=== PATIENT | female | born 1950 | race Caucasian/White ===

== ENCOUNTER → 2018-11-12 | Outpatient (CLI) | payer MEDICARE, OTHER ==
[~2018-11-12] MED LIST: ALBU.083IS IH; ALBU90OI INH; ATOR20 PO; AZIT250 PO; CHOL10002 PO; CYCL10 PO; DEXILANT30 MG PO; DIPH50 PO; ELIQUIS5 MG PO; GUAI600T33 PO; HYDCHL12.5 PO; LEVSOD75 PO; LIDO700A20 TOP; LORA1 PO; LOSA50 PO; LOSHYD PO; METO50ER PO; METPRE4DP PO; Morphine Sulfat30 M1 PO; Mucinex600 MG PO; OMEG1CAP30 PO; PRED10 PO; PRED20 PO; PRED5 PO; PROCODE120 PO; Pepcid40 MG PO; SPIR25 PO; Synthroid112 MCG PO; Ultram50 MG PO; VIT B COMPLEX PO; Vibramycin100 MG PO
== END | disposition home or self-care (01) ==
LOC: LAB EV 15:42 → LAB SHORT 15:42
DX: N10 Acute pyelonephritis (principal)
CPT/HCPCS: 87077; 87086; 87147; 87186

== ENCOUNTER 2018-11-15 12:16 | Emergency (ER) | payer MEDICARE, OTHER ==
[~2018-11-15] VITALS: Ht 175.3 cm; Wt 119.8 kg
[~2018-11-15 12:16] MED LIST changes: -ATOR20 PO; -CYCL10 PO; -LIDO700A20 TOP; -PRED5 PO; -Ultram50 MG PO
[2018-11-15 12:50] LABS: Source, Urine Clean Catch
[2018-11-15 12:53] LABS: Bilirubin, Urine Neg (Neg); Blood, Urine Neg (Neg); Glucose Qualitative, Urine Neg (Neg); Ketones, Urine Neg (Neg); Leukocyte Esterase, Urine 1+ (Neg); Nitrite, Urine Neg (Neg); Protein, Urine 1+ (Neg); Urobilinogen, Urine 1+ (Normal)
[2018-11-15 13:07] LABS: Appearance, Urine Clear (Clear); Color, Urine Yellow (P-Yellow)
[2018-11-15 13:10] LABS: Red Blood Cells, Urine Rare /hpf (0-2)
[2018-11-15 13:11] LABS: Squamous Epithelial Cells Few /hpf (Few)
[2018-11-15 13:12] LABS: Bacteria Rare /hpf
[2018-11-15 13:13] LABS: BASOPHILS ABSOLUTE AUTO 0.03 K/mm3 (0.00-0.23); BASOPHILS PERCENT AUTO 0 % (0-2); EOSINOPHILS ABSOLUTE AUTO 0.02 K/mm3 (0.00-0.68); EOSINOPHILS PERCENT AUTO 0 % (0-6); Hematocrit 43.5 % (33.0-51.0); Hemoglobin 14.2 g/dL (11.5-16.0); IMMATURE GRAN ABSOLUTE AUTO 0.03 K/mm3 (0.00-0.10); IMMATURE GRAN PERCENT AUTO 0 % (0-1); LYMPHOCYTES ABSOLUTE AUTO 1.53 K/mm3 (0.84-5.20); LYMPHOCYTES PERCENT AUTO 21 % (21-46); MONOCYTES PERCENT AUTO 7 % (4-13); Mean Corpuscular HGB 31.6 pg (26.0-34.0); Mean Corpuscular HGB Conc 32.6 g/dL (31.5-36.5); Mean Corpuscular Volume 97 fL (80-100); Mean Platelet Volume 10.8 fL (9.1-12.4); NEUTROPHILS ABSOLUTE AUTO 5.16 K/mm3 (1.96-9.15); NEUTROPHILS PERCENT AUTO 71 % (41-73); Platelet Count 236 K/mm3 (150-400); RDW Coefficient Variation 12.9 % (11.7-14.2); RDW Standard Deviation 46.2 fL (35.1-46.3); Red Blood Cell Count 4.49 M/mm3 (3.80-5.20); White Blood Cell Count 7.27 K/mm3 (4.00-11.30)
[2018-11-15 13:33] LABS: Albumin, Blood 3.4 g/dL (3.4-5.0); Albumin/Globulin Ratio 0.7 (0.8-1.8); Bilirubin, Total 0.5 mg/dL (0.1-1.0); Bun/Creatinine Ratio 13.1 (12.0-20.0); Calcium, Blood 8.4 mg/dL (8.5-10.1); Creatinine, Blood 1.37 mg/dL (0.40-1.00); Globulin, Blood 4.7 g/dL (2.2-4.0); Potassium, Blood 4.3 mmol/L (3.5-5.5); Total Protein, Blood 8.1 g/dL (6.4-8.2)
[2018-11-15] MEDS ORDERED: ATOR20 PO (14:03)
[2018-11-15] MEDS ORDERED: Ultram50 MG PO (15:02)
== END 2018-11-15 15:18 | disposition home or self-care (01) ==
LOC: ER 12:16
PROVIDERS: Emergency Medicine
DX: M54.5 Low back pain (principal); J45.909 Unspecified asthma, uncomplicated; I48.91 Unspecified atrial fibrillation; I10 Essential (primary) hypertension; F41.9 Anxiety disorder, unspecified; E03.9 Hypothyroidism, unspecified; K21.9 Gastro-esophageal reflux disease without esophagitis; Z79.899 Other long term (current) drug therapy
CPT/HCPCS: 36415; 72100; 80053; 81001; 85025; 87086; 96374; 96375; 99283-25; J2405; J3010

== ENCOUNTER 2018-11-20 21:35 | Emergency (ER) | payer MEDICARE, OTHER ==
[~2018-11-20] VITALS: Ht 175.3 cm; Wt 119.8 kg
[~2018-11-20 21:35] MED LIST changes: +ATOR20 PO; +Ultram50 MG PO
[2018-11-20] MEDS ORDERED: PRED5 PO (21:46)
[2018-11-20] MEDS ORDERED: CYCL10 PO (21:46)
[2018-11-21] MEDS ORDERED: LIDO700A20 TOP (00:46)
== END 2018-11-21 00:58 | disposition home or self-care (01) ==
LOC: ER 21:35
DX: M54.5 Low back pain (principal); Z88.5 Allergy status to narcotic agent; Z88.1 Allergy status to other antibiotic agents; Z88.0 Allergy status to penicillin; Z88.8 Allergy status to other drugs, medicaments and biological substances; Z79.899 Other long term (current) drug therapy; Z79.52 Long term (current) use of systemic steroids; J45.909 Unspecified asthma, uncomplicated; I10 Essential (primary) hypertension; F41.9 Anxiety disorder, unspecified; E03.9 Hypothyroidism, unspecified; K21.9 Gastro-esophageal reflux disease without esophagitis
CPT/HCPCS: 96374; 99283-25; J1170; J1885